=== PATIENT | male | born 1960 | race Caucasian/White ===

== ENCOUNTER 2021-03-09 13:47 | Inpatient (IN) | payer SELFPAY ==
[~2021-03-09] VITALS: Ht 157.5 cm; Wt 68.0 kg
[2021-03-09] MEDS ORDERED: LORAZEPAM 2MG/ML CPJ IV STA (14:31)
[2021-03-09] MEDS ORDERED: SODIUM CHLORIDE 0.9% 1,000 ML IV ONE (14:45)
[2021-03-09 15:05] LABS: HEMATOCRIT. 36.8 % (42.0-52.0); HEMOGLOBIN. 12.8 g/dL (14.0-18.0); MEAN CORPUSCULAR VOLUME 97.9 fL (80.0-94.0); MEAN PLATELET VOLUME 10.3 fl (7.4-10.4); RED BLOOD CELL COUNT 3.76 mill/uL (4.7-6.1)
[2021-03-09 15:11] LABS: CHLORIDE 104 mEq/L (98-107)
[2021-03-09 15:18] LABS: ETHANOL BLOOD < 10 mg/dL
[2021-03-09 15:19] LABS: CREATINE KINASE 988 IU/L (39-308)
[2021-03-09] MEDS ORDERED: LACTULOSE 20G/30ML UDC PO NR (15:45)
[2021-03-09 15:56] LABS: CLARITY URINE CLEAR (CLEAR); COLOR URINE DARK YELLOW (YELLOW); KETONES URINE 2+ (NEGATIVE); LEUKOCYTE ESTERASE URINE NEGATIVE (NEGATIVE); NITRITE URINE NEGATIVE (NEGATIVE); OCCULT BLOOD URINE NEGATIVE (NEGATIVE); PROTEIN URINE NEGATIVE (NEGATIVE); SPECIFIC GRAVITY URINE 1.024 (1.005-1.030)
[2021-03-09 16:03] LABS: PLATELET 44 x1000/uL (130-400)
[2021-03-09 16:13] LABS: *AMPHETAMINES SCREEN URINE NEGATIVE (NEGATIVE); *BARBITURATES SCREEN URINE NEGATIVE (NEGATIVE); *BENZODIAZEPINES SCREEN URINE NEGATIVE (NEGATIVE); *COCAINE SCREEN URINE NEGATIVE (NEGATIVE); METHADONE URINE SCREEN NEGATIVE (NEGATIVE)
[2021-03-09 16:14] LABS: CANNABINOID URINE SCREEN NEGATIVE (NEGATIVE); OPIATES URINE SCREEN NEGATIVE (NEGATIVE); PHENCYCLIDINE URINE SCREEN NEGATIVE (NEGATIVE)
[2021-03-09 17:38] LABS: PLATELET ESTIMATE MARKEDLY DECREASED
[2021-03-10] VITALS: BP 105/66
[2021-03-10 00:15] VITALS: BP 107/65
[2021-03-10] MEDS ORDERED: LORAZEPAM 2MG/ML CPJ IV PRN (00:45)
[2021-03-10 04:00] VITALS: BP 105/66
[2021-03-10] MEDS: LACTULOSE 20G/30ML UDC PO SCH ×3 (05:38→21:17)
[2021-03-10 06:44] LABS: CHLORIDE 106 mEq/L (98-107)
[2021-03-10 06:49] LABS: LDL CHOLESTEROL 98 mg/dL (5-100)
[2021-03-10 06:51] LABS: HDL CHOLESTEROL 21 mg/dL (40-59)
[2021-03-10 06:57] LABS: HEMATOCRIT. 37.9 % (42.0-52.0); HEMOGLOBIN. 12.6 g/dL (14.0-18.0); MEAN CORPUSCULAR HEMOGLOBIN 33.2 pg (28.0-32.0); MEAN CORPUSCULAR VOLUME 99.9 fL (80.0-94.0); MEAN PLATELET VOLUME 10.1 fl (7.4-10.4); RED BLOOD CELL COUNT 3.79 mill/uL (4.7-6.1); RED CELL DISTRIBUTION WIDTH 15.2 % (11.6-14.6)
[2021-03-10 07:01] LABS: PLATELET 41 x1000/uL (130-400)
[2021-03-10] MEDS: FOLIC ACID 1MG TABLET PO SCH (08:30)
[2021-03-10] MEDS: CHLORDIAZEPOXIDE 25MG CAPSULE PO SCH ×2 (08:30→21:17)
[2021-03-10] MEDS: THIAMINE HCL 100MG TABLET PO SCH (08:31)
[2021-03-10] MEDS: MULTIVITAMINS,THER W-MINERALS TABLET PO SCH (08:31)
[2021-03-10] MEDS: PANTOPRAZOLE SODIUM 40 MG/VIAL IV SCH (08:39)
[2021-03-10] MEDS ORDERED: FOLIC ACID 1MG TABLET PO SCH (09:00)
[2021-03-10] MEDS ORDERED: SODIUM CHLORIDE 0.9% 1,000 ML IV SCH (16:30)
[2021-03-10 20:00] VITALS: BP 91/63
[2021-03-11] VITALS: BP 103/77
[2021-03-11 04:00] VITALS: BP 106/68
[2021-03-11] MEDS: LACTULOSE 20G/30ML UDC PO SCH ×2 (05:30→16:24)
[2021-03-11 08:00] VITALS: BP 112/72
[2021-03-11] MEDS: MULTIVITAMINS,THER W-MINERALS TABLET PO SCH (09:00)
[2021-03-11] MEDS: FOLIC ACID 1MG TABLET PO SCH (09:53)
[2021-03-11] MEDS: PANTOPRAZOLE SODIUM 40 MG/VIAL IV SCH (09:53)
[2021-03-11] MEDS: THIAMINE HCL 100MG TABLET PO SCH (09:53)
[2021-03-11] MEDS: CHLORDIAZEPOXIDE 25MG CAPSULE PO SCH (09:53)
[2021-03-11] MEDS ORDERED: THIA100T72 PO (11:48)
[2021-03-11] MEDS ORDERED: LACT10SO7 MT (11:48)
[2021-03-11 12:00] VITALS: BP 112/74
[2021-03-11 12:27] VITALS: BP 112/74
[2021-03-11 13:33] LABS: PLATELET ESTIMATE MARKEDLY DECREASED
== END 2021-03-11 16:35 | disposition home or self-care (01) | DRG 775 ==
LOC: ER 13:47 → MICUSO 20:44 → EDBEDREQ 20:46 → EDBEDREQTM 20:46 → ENRESERV 21:59 → 6EST 23:10
PROVIDERS: ADMIT Internal Medicine; ATTEND Internal Medicine
DX: F10.130 Alcohol abuse with withdrawal, uncomplicated (principal); D61.818 Other pancytopenia; E44.0 Moderate protein-calorie malnutrition; K76.0 Fatty (change of) liver, not elsewhere classified; E87.1 Hypo-osmolality and hyponatremia; E72.20 Disorder of urea cycle metabolism, unspecified; R74.01 Elevation of levels of liver transaminase levels; F12.90 Cannabis use, unspecified, uncomplicated; F17.210 Nicotine dependence, cigarettes, uncomplicated; Z71.41 Alcohol abuse counseling and surveillance of alcoholic; Z71.6 Tobacco abuse counseling; Z68.27 Body mass index [BMI] 27.0-27.9, adult
CPT/HCPCS: 36415; 71045; 76705; 80048; 80053; 80061; 80305; 80307; 80320; 80329; 81003; 82040; 82140; 82247; 82550; 83605; 84075; 84450; 84460; 85025; 93005; 97162; 99285; C9113; J2060; J7030; G0480